=== PATIENT | female | born 1990 | race Caucasian/White ===

== ENCOUNTER 2018-12-09 07:28 | Day surgery (SDC) | payer OTHER ==
[2018-12-09] MEDS ORDERED: BUPIVACAINE 0.5%/EPI (SDV) 10 ML INJ (08:06)
[2018-12-09] MEDS ORDERED: DEXAMETHASONE 4 MG/ML 1 ML INJ (08:07)
[2018-12-09] MEDS ORDERED: CEFAZOLIN 1 GM INJ (09:26)
[2018-12-09] MEDS ORDERED: ROCURONIUM 50 MG INJ (09:26)
[2018-12-09] MEDS ORDERED: GLYCOPYRROLATE 0.4 MG INJ (09:26)
[2018-12-09] MEDS ORDERED: NEOSTIGMINE 3 MG/3 ML SYRINGE (09:26)
[2018-12-09] MEDS ORDERED: PROPOFOL 20 ML (09:26)
[2018-12-09] MEDS ORDERED: IPRATROPIUM (NEB) 0.5 MG/2.5 ML AMP HHN (09:30)
[2018-12-09] MEDS ORDERED: HYDROmorphONE 1 MG/5 ML IV SYRINGE IV (09:30)
[2018-12-09] MEDS ORDERED: ALBUTEROL 0.083% (NEB) 2.5 MG/3 ML AMP HHN (09:30)
[2018-12-09] MEDS ORDERED: FENTAnyl 50 MCG/ML VIAL IV ×2 (09:30)
[2018-12-09] MEDS ORDERED: TRIMETHOBENZAMIDE 100 MG/ML VIAL IM (09:30)
[2018-12-09] MEDS ORDERED: DEXAMETHASONE 4 MG/ML 5 ML INJ (09:30)
[2018-12-09] MEDS ORDERED: FENTAnyl 50 MCG/ML VIAL (09:30)
[2018-12-09] MEDS ORDERED: MIDAZOLAM 1 MG/ML 2 ML INJ IV (09:30)
[2018-12-09] MEDS ORDERED: LABETALOL HCL 20MG INJ IV (09:30)
[2018-12-09] MEDS ORDERED: OXYCODONE/ACETAMINOPHEN (5/325) TAB PO (09:30)
[2018-12-09] MEDS ORDERED: DIPHENHYDRAMINE 50 MG INJ IV (09:30)
[2018-12-09] MEDS ORDERED: ONDANSETRON 4 MG INJ (09:30)
[2018-12-09] MEDS ORDERED: EPHEDrine SULFATE 50 MG/5 ML SYG IV (09:30)
[2018-12-09] MEDS ORDERED: hydrALAzine 20 MG INJ IV (09:30)
[2018-12-09] MEDS ORDERED: MIDAZOLAM 1 MG/ML 2 ML INJ (09:30)
[2018-12-09] MEDS: POVIDONE IODINE 10% 28.4 GM OINT (10:00)
[2018-12-09] MEDS: BUPIVACAINE 0.5% (SDV) 30 ML INJ (10:36)
[2018-12-09] MEDS: FENTAnyl 50 MCG/ML VIAL IV (10:50)
[2018-12-09] MEDS: ONDANSETRON 4 MG INJ IV (10:57)
[2018-12-09] MEDS: MEPERIDINE 25 MG INJ IV (10:57)
[2018-12-09] MEDS: HYDROmorphONE 1 MG/5 ML IV SYRINGE IV ×2 (10:57→11:09)
[2018-12-09] MEDS: OXYCODONE/ACETAMINOPHEN (5/325) TAB PO (12:08)
== END 2018-12-09 13:15 | disposition home or self-care (01) ==
LOC: SDS 07:28
DX: M20.12 Hallux valgus (acquired), left foot (principal); M21.612 Bunion of left foot; F41.9 Anxiety disorder, unspecified
CPT/HCPCS: 28298

== ENCOUNTER 2019-04-07 07:29 | Day surgery (SDC) | payer OTHER ==
[2019-04-07] MEDS ORDERED: PROPOFOL 200 MG INJ (07:35)
[2019-04-07] MEDS ORDERED: LIDOCAINE 2% (SDV) 5 ML INJ (08:42)
[2019-04-07] MEDS ORDERED: PROPOFOL 60 ML (08:42)
[2019-04-07] MEDS ORDERED: FENTAnyl 50 MCG/ML VIAL IV (10:30)
== END 2019-04-07 12:57 | disposition home or self-care (01) ==
LOC: GIL 07:29
DX: R19.5 Other fecal abnormalities (principal); K64.1 Second degree hemorrhoids; K29.30 Chronic superficial gastritis without bleeding
CPT/HCPCS: 43239; 84703; 88305; 88313